=== PATIENT | female | born 1955 | race Caucasian/White ===

== ENCOUNTER 2017-04-08 20:01 | Emergency (ER) | payer OTHER ==
[2017-04-08 20:06] VITALS: PULSE 92; TEMP 99.4; BMI 37.8
--- NOTE | 2017-04-08 21:52 | PDOC ---
Attending Attestation - Resident Resident Name: José Miguel Camarillo - ED Attending Attestation I have performed the following: I have examined & evaluated the patient, The case was reviewed & discussed with the resident, I agree w/resident's findings & plan, Exceptions are as noted - HPI HPI: 04/09/17 03:44 Pt is a 62F w/ PMH Asthma (not on meds, no intubations/admissions), HTN (not compliant with meds), who presents to ED with 2 days of cough, right ear, throat , chest pain, and chills x 2 days. Chest pain is substernal but occurs only when he coughs. Cough is nonproductive and worse when she goes out in the cold air. Pt tried taking robitussin with no improvement. +sick contacts. Denies CP outside of coughing, denies SOB, focal weakness or numbness, headache, abd pain , N/V/D. - Physicial Exam PE: 04/09/17 03:50 GENERAL: Awake, alert, and fully oriented, in no acute distress HEAD: No signs of trauma EYES: PERRLA, EOMI, sclera anicteric, conjunctiva clear ENT: Auricles normal inspection, hearing grossly normal, nares patent, oropharynx clear without exudates. Moist mucosa NECK: Normal ROM, supple, no lymphadenopathy, JVD, or masses LUNGS: Breath sounds equal, clear to auscultation bilaterally. No wheezes, and no crackles HEART: Regular rate and rhythm, normal S1 and S2, no murmurs, rubs or gallops ABDOMEN: Soft, nontender, normoactive bowel sounds. No guarding, no rebound. No masses EXTREMITIES: Normal range of motion, no edema. No clubbing or cyanosis. No cords, erythema, or tenderness NEUROLOGICAL: Normal speech, cranial nerves intact, negative pronator drift, 5/ 5 strength in all 4 extremities, normal sensation to light touch in all 4 extremities, normal cerebellar exam, normal gait, normal reflexes and tone SKIN: Warm, Dry, normal turgor, no rashes or lesions noted. - Medical Decision Making 04/09/17 00:45 62-year-old female history of bronchitis presents with cough, congestion and chest pain when she coughs. Vitals remarkable for a blood pressure of 200/100 likely secondary to blood pressure medication noncompliance. Exam within normal limits with clear lungs and no crackles concerning for infiltrate. Likely bronchitis, will give home blood pressure medications and obtain an x-ray. Will also check labs including a troponin. 04/09/17 02:11 Labs wnl. Pt feels better after nebulizer treatment. Rpt BP 180/90. Pt pending CXR to r/o infiltrates.
--- NOTE | 2017-04-08 21:52 | PDOC ---
History of Present Illness - General Chief Complaint: Chest Pain Stated Complaint: CHEST PAIN Time Seen by Provider: 04/08/17 21:34 - History of Present Illness Initial Comments: 04/08/17 21:51 Pt is a 62F w/ PMH mild Asthma (exacerbated by cold), HTN (pt has not taken meds for 2 days), who presents to ED with 2 days of cough, right ear, throat, chest pain, and chills. Symptoms began 2 days ago and have progressed. Chest pain is substernal associated with her cough. Cough is nonproductive and worse when she goes out in the cold air. Pt tried taking Robitussin. Did not measure temperature at home. Pt's son had a cold recently. Pt did not get a flu shot this year. Past History - Past Medical History Allergies/Adverse Reactions: Allergies Allergy/AdvReac Type Severity Reaction Status Date / Time No Known Allergies Allergy Verified 04/08/17 20:02 Home Medications: Ambulatory Orders Nebivolol HCl [Bystolic] 5 mg PO DAILY 08/20/13 Valsartan/Hydrochlorothiazide [Diovan Hct 320-12.5 mg Tab] 1 tab PO DAILY Azithromycin [Zithromax 250mg Tablets -] 250 mg PO DAILY 4 Days #4 tablet Asthma: No CVA: No COPD: No Disorders: Yes (NEPHROLITHIASIS) HTN: Yes - Suicide/Smoking/Psychosocial Hx Smoking History: Never smoked Have you smoked in the past 12 months: No If you are a former smoker, when did you quit?: years ago Information on smoking cessation initiated: No Hx Alcohol Use: No Drug/Substance Use Hx: No Review of Systems - Review of Systems Able to Perform ROS?: Yes Is the patient limited Belarusian proficient: No Constitutional: Yes: Symptoms Reported, Chills. No: Night Sweats HEENTM: Yes: Symptoms Reported, Ear Pain. No: Blurred Vision, Ear Discharge, Nose Congestion, Tinnitus, Hearing Loss Respiratory: Yes: Symptoms reported, Cough. No: Stridor, Wheezing, Productive cough Cardiac (ROS): Yes: Symptoms Reported, Chest Pain, Chest Tightness. No: Irregular Heart Rate ABD/GI: Yes: Symptoms Reported. No: Abdominal Distended, Abd. Pain w/ defecation, Constipated, Diarrhea, Nausea, Poor Appetite, Poor Fluid Intake, Vomiting, Indigestion, Abdominal cramping : Yes: Symptoms Reported. No: Burning, Dysuria, Discharge, Frequency, Flank Pain, Hematuria, Pain, Urgency Musculoskeletal: Yes: Symptoms Reported. No: Muscle Pain Integumentary: Yes: Symptoms Reported. No: Bruising, Lesions Neurological: Yes: Headache *Physical Exam - Vital Signs Last Vital Signs Temp Pulse Resp BP Pulse Ox 99.4 F 92 H 20 200/100 100 04/08/17 20:03 04/08/17 20:03 04/08/17 20:03 04/08/17 20:03 04/08/17 20:03 - Physical Exam General Appearance: Yes: Nourished, Appropriately Dressed. No: Apparent Distress HEENT: positive: EOMI, PHYLLIS, Tonsillar Erythema, TM Erythema (R ear pain with manipulation of tragus). negative: Pharynx Normal, Pale Conjunctivae, Photophobia, Muffled/Hoarse voice, Tonsillar Exudate, Nasal Congestion, Rhinorrhea, Sinus Tenderness, TM Bulging, TM Dull Neck: positive: Trachea midline, Supple. negative: Lymphadenopathy (R), Lymphadenopathy (L), Tender lateral, Tender midline Respiratory/Chest: positive: Normal Breath Sounds. negative: Chest Tender, Respiratory Distress, Wheezing Cardiovascular: positive: Regular Rhythm, Regular Rate, S1, S2. negative: Edema , JVD, Murmur Vascular Pulses: Dorsalis-Pedis (R): 2+ (PT), Doralis-Pedis (L): 2+ (PT) Gastrointestinal/Abdominal: positive: Normal Bowel Sounds, Flat, Soft. negative : Tender, Organomegaly, Pulsatile Mass, Guarding, Tenderness Lymphatic: negative: Adenopathy, Tenderness Extremity: positive: Normal Inspection, Normal Range of Motion. negative: Coldness, Cyanosis, Swelling, Calf Tenderness Neurologic: positive: Fully Oriented, Alert, Normal Mood/Affect, Normal Response , Motor Strength 5/5 ED Treatment Course - LABORATORY CBC & Chemistry Diagram: 04/08/17 22:35 04/08/17 22:35 Medical Decision Making - Medical Decision Making 04/08/17 22:09 Pt is a 62F with PMH HTN, Asthma who presents to ED with symptoms of URI. Pt has 2d cough, chest pain, sore throat, right ear pain, and chills. Pt has tender red right ear canal, pharyngeal erythema, no wheezing. Pt has hypertensive urgency with BP 200/100 . She has not taken HTN meds for 2 days. -resume home BP meds -CBC -CMP -Mg -Tn -CXR 04/09/17 00:45 BP 188/112 will continue to monitor 04/09/17 01:52 BP 183/95 Pt stable *DC/Admit/Observation/Transfer Diagnosis at time of Disposition: Pneumonia Qualifiers: Pneumonia type: due to unspecified organism Laterality: unspecified laterality Lung location: unspecified part of lung Qualified Code(s): J18.9 - Pneumonia, unspecified organism - Discharge Dispostion Disposition: HOME Admit: No - Prescriptions Prescriptions: Azithromycin [Zithromax 250mg Tablets -] 250 mg PO DAILY 4 Days #4 tablet - Referrals Referrals: Arun Patel MD [Primary Care Provider] - - Patient Instructions Printed Discharge Instructions: Pneumonia-Adult Additional Instructions: Take your antibiotics as prescribed. Your blood pressure was elevated in the emergency department, follow up with your primary doctor within 1-2 days for a re-check. Return to the emergency department if you have any new, worsening, or concerning symptoms. - Post Discharge Activity
[2017-04-08] MEDS ORDERED: NEBIVOLOL 5 MG TABLET (FP) PO ONE (21:54)
[2017-04-08] MEDS ORDERED: VALSARTAN 160 MG TABLET (UD) PO ONE (21:55)
[2017-04-08] MEDS ORDERED: HYDROCHLOROTHIAZIDE 12.5 MG CAPSULE (FP) PO ONE (21:56)
[2017-04-08] MEDS ORDERED: VALSARTAN 80 MG TABLET (UD) ONE (22:13)
[2017-04-08] MEDS ORDERED: HYDROCHLOROTHIAZIDE 25 MG TABLET (FP) ONE (22:13)
[2017-04-08 22:46] LABS: BASO % 0.2 % (0-2.0); EOS # 0.2 # (0-4.5); EOS % 4.2 % (0-4.5); LYMPH # 0.6 (8-40); MCH 31.8 pg (25.7-33.7); MCHC 33.4 g/dl (32.0-36.0); MEAN CELL VOLUME 95.1 fl (80-96); MEAN PLT VOLUME 8.3 fl (7.5-11.1); MONO # 0.5 # (3.8-10.2); NEUT # 3.9 # (42.8-82.8); NEUT % 75.2 % (42.8-82.8); PLATELET COUNT 200 K/MM3 (134-434); RDW 12.8 % (11.6-15.6); WHITE BLOOD COUNT 5.2 K/mm3 (4.0-10.0)
[2017-04-08 23:29] LABS: ALBUMIN 3.7 g/dl (3.4-5.0); ALK PHOS 82 U/L (45-117); ANION GAP 9 (8-16); BILIRUBIN,TOTAL 0.4 mg/dL (0.2-1.0); CALCIUM 9.1 mg/dL (8.5-10.1); CO2 27 mmol/L (21-32); CREATININE 0.8 mg/dL (0.55-1.02); GLUCOSE,RANDOM 96 mg/dL (74-106); MAGNESIUM 1.9 mg/dL (1.8-2.4); SGOT/AST 14 U/L (15-37); SGPT/ALT 23 U/L (12-78); TOT PROT 7.8 g/dl (6.4-8.2)
[2017-04-09] MEDS ORDERED: IPRATROPIUM BR 0.02% 0.5 MG/2.5 ML VIAL.NEB. NEB ONE (00:43)
[2017-04-09] MEDS ORDERED: AZITHROMYCIN 500 MG TABLET PO ONE (02:28)
[2017-04-09] MEDS ORDERED: AZITHROMYCIN 500 MG TABLET ONE (03:00)
[2017-04-09 03:05] VITALS: BP 172/85
--- NOTE | 2017-04-09 13:10 | EKG ---
Test Reason : Blood Pressure : / mmHG Vent. Rate : 092 BPM Atrial Rate : 092 BPM P-R Int : 126 ms QRS Dur : 068 ms QT Int : 364 ms P-R-T Axes : 074 055 050 degrees QTc Int : 450 ms POOR DATA QUALITY, INTERPRETATION MAY BE ADVERSELY AFFECTED NORMAL SINUS RHYTHM POSSIBLE LEFT ATRIAL ENLARGEMENT SEPTAL INFARCT , AGE UNDETERMINED ABNORMAL ECG WHEN COMPARED WITH ECG OF 04-JAN-2017 10:36, SEPTAL INFARCT IS NOW PRESENT Confirmed by MD Evaristo, Fautso ([id number]) on 04/09/2017 1:10:24 PM Referred By: Confirmed By:Fausto Loera MD
== END 2017-04-09 03:05 | disposition home or self-care (01) ==
LOC: JER 20:01
PROC: 3E0F7GC Introduction of Other Therapeutic Substance into Respiratory Tract, Via Natural or Artificial Opening (ICD-10-PCS; principal; 2017-04-08)
DX: J18.9 Pneumonia, unspecified organism (principal); I10 Essential (primary) hypertension; J45.909 Unspecified asthma, uncomplicated
CPT/HCPCS: 36415; 71010-TC; 80053; 83735; 84484; 85025; 93005; 93010; 99282-25

== ENCOUNTER 2018-08-01 21:00 | Emergency (ER) | payer OTHER ==
--- NOTE | 2018-08-01 21:08 | PDOC ---
Rapid Medical Evaluation Time Seen by Provider: 08/01/18 21:06 Medical Evaluation: Allergies Allergy/AdvReac Type Severity Reaction Status Date / Time No Known Allergies Allergy Verified 04/08/17 20:02 08/01/18 21:06 I performed a brief in-person evaluation of this patient. Chief complaint: Low back pain x 2 days, no trauma or heavy lifting, no dysuria. Pertinent physical exam findings: Ambulatory. No LE weakness. Normal strength and sensation. I have ordered the following: None Patient will proceed to the ED for further evaluation. Discharge Disposition - Diagnosis Low back pain - Referrals - Patient Instructions - Post Discharge Activity
[2018-08-01 21:11] VITALS: BP 140/78; PULSE 89; TEMP 98.4; BMI 38.7
[2018-08-01] MEDS ORDERED: KETOROLAC TROMETHAMINE 60 MG/2 ML VIAL IM ONE (21:29)
[2018-08-01] MEDS ORDERED: KETOROLAC TROMETHAMINE 60 MG/2 ML VIAL ONE (21:31)
--- NOTE | 2018-08-01 21:39 | PDOC ---
History of Present Illness - General Chief Complaint: Back Pain Stated Complaint: LOWER BACK PAIN Time Seen by Provider: 08/01/18 21:06 History Source: Patient Exam Limitations: Clinical Condition - History of Present Illness Initial Comments: 08/01/18 21:54 Patient with no significant past medical history present with complaint of 2 day history of bilateral lower back pain which is worse with movement. Patient reports she has been doing lots of housecleaning in the last 3 days area patient denies any urinary symptoms of dysuria, burning with urination, urinary frequency, urgency or hematuria. Denies numbness or tingling sensation. Denies fever, chills, nausea or vomiting. Denies any other symptoms Timing/Duration: other (2 days) Past History - Past Medical History Allergies/Adverse Reactions: Allergies Allergy/AdvReac Type Severity Reaction Status Date / Time No Known Allergies Allergy Verified 08/01/18 22:18 Home Medications: Ambulatory Orders Nebivolol HCl [Bystolic] 5 mg PO DAILY 08/20/13 Valsartan/Hydrochlorothiazide [Diovan Hct 320-12.5 mg Tab] 1 tab PO DAILY Methocarbamol [Robaxin -] 500 mg PO BID PRN #14 tablet 08/01/18 Naproxen 500 mg PO BID PRN #20 tablet 08/01/18 Asthma: No CVA: No COPD: No Disorders: Yes (NEPHROLITHIASIS) HTN: Yes - Suicide/Smoking/Psychosocial Hx Smoking History: Unknown if ever smoked Have you smoked in the past 12 months: No If you are a former smoker, when did you quit?: years ago Hx Alcohol Use: No Drug/Substance Use Hx: No Review of Systems - Review of Systems Able to Perform ROS?: Yes Is the patient limited Persian proficient: No Constitutional: No: Weakness HEENTM: No: Symptoms Reported Respiratory: No: Symptoms reported Cardiac (ROS): No: Symptoms Reported ABD/GI: No: Symptoms Reported : No: Burning, Dysuria, Discharge, Frequency, Hematuria, Urgency Musculoskeletal: Yes: Symptoms Reported, Back Pain (b/l lower back), Muscle Pain (b/l lower back) Neurological: No: Headache, Numbness, Paresthesia, Tingling, Dizziness All Other Systems: Reviewed and Negative *Physical Exam - Vital Signs Last Vital Signs Temp Pulse Resp BP Pulse Ox 98.4 F 89 20 140/78 97 04/19/19 21:04 08/01/18 21:04 08/01/18 21:04 08/01/18 21:04 08/01/18 21:04 - Physical Exam Comments: 08/01/18 21:38 GENERAL: Well developed, well nourished. Awake and alert in mild acute distress. CARDIOVASCULAR: Regular rate and rhythm. No murmurs, rubs, or gallops. PULMONARY: No evidence of respiratory distress. Lungs clear to auscultation bilaterally. No wheezing, rales or rhonchi. ABDOMINAL: Soft. Non-tender. Non-distended. No rebound or guarding. No organomegaly. Normoactive bowel sounds MUSCULOSKELETAL : moderate tenderness over posterior paravertebral muscle of lumber spine of L2-S1 on bilateral sides which is worse with external rotation of hip. no CVAT. No bony deformities SKIN: Warm and dry. Normal capillary refill. No rashes. No jaundice. NEUROLOGICAL: Alert, awake, appropriate. No motor deficits in the lower extremities. Gait is normal without ataxia. PSYCHIATRIC: Cooperative. Good eye contact. Appropriate mood and affect. 08/01/18 21:58 General Appearance: Yes: Nourished, Appropriately Dressed, Mild Distress ED Treatment Course - RADIOLOGY Radiology Studies Ordered: Category Date Time Status SPINE-LUMBAR SACRAL [RAD] Stat Radiology 08/01/18 21:29 Ordered - Medications Given in the ED: ED Medications Discontinued Medications Generic Name Dose Route Start Last Admin Trade Name Freq PRN Reason Stop Dose Admin Ketorolac Tromethamine 60 mg 08/01/18 21:29 08/01/18 21:31 Toradol Injection - IM 08/01/18 21:30 60 mg ONCE ONE Administration Medical Decision Making - Medical Decision Making 08/01/18 21:56 Patient with no significant past medical history present with complaint of 2 day history of bilateral lower back pain which is worse with movement. Patient reports she has been doing lots of housecleaning in the last 3 days area patient denies any urinary symptoms of dysuria, burning with urination, urinary frequency, urgency or hematuria. Denies numbness or tingling sensation. Denies fever, chills, nausea or vomiting. Denies any other symptoms Exam significant for mild tenderness to bilateral paravertebral muscle of the lower lumbar spine of L2-S1 with mild midline tenderness which is worse with external rotation of the hip. Negative CVA tenderness. Symptoms likely muscle strain versus herniated disc versus less likely pyelonephritis. Pyelonephritis very unlikely given nose urinary symptoms and negative CVA tenderness. Toradol 60 mg IM given for pain. X-ray of lumbosacral ordered to rule out acute pathology. Patient be discharged home on NSAIDs and muscle relaxer if negative x -ray 08/01/18 22:32 x-rays of lumbosacral shows straightening of lumber spine c/w spasm. Flexeril 10mg PO given for spasm. Patient stable for discharge on naproxen and robaxin prn for pain with ortho follow-up *DC/Admit/Observation/Transfer Diagnosis at time of Disposition: Low back pain Qualifiers: Chronicity: acute Back pain laterality: bilateral Sciatica presence: without sciatica Qualified Code(s): M54.5 - Low back pain - Discharge Dispostion Disposition: HOME Condition at time of disposition: Stable Decision to Admit order: No - Prescriptions Prescriptions: Methocarbamol [Robaxin -] 500 mg PO BID PRN #14 tablet PRN Reason: Back Pain Naproxen 500 mg PO BID PRN #20 tablet PRN Reason: Back Pain - Referrals Referrals: Jesús Chua MD [Staff Physician] - - Patient Instructions Printed Discharge Instructions: Low Back Pain, Exercise May Reduce Risk of Low Back Pain Additional Instructions: Your x-ray shows no acute fracture or dislocation. x-rays shows spasm of spine. Your symptoms is likely from muscle spasm. Take prescribed medications as needed for pain. Apply hot compress to lower back 2-3 times per day as needed for pain. Follow-up with referred orthopedics manufacture specialist if no improvement in 4 days - Post Discharge Activity
[2018-08-01] MEDS ORDERED: CYCLOBENZAPRINE HCL 10 MG TABLET (FP) PO ONE (22:25)
[2018-08-01] MEDS ORDERED: CYCLOBENZAPRINE HCL 10 MG TABLET (FP) ONE (22:26)
== END 2018-08-01 22:52 | disposition home or self-care (01) ==
LOC: JER 21:00 → JERFT 21:00
PROC: 3E0233Z Introduction of Anti-inflammatory into Muscle, Percutaneous Approach (ICD-10-PCS; principal; 2018-08-01)
DX: M54.5 Low back pain (principal)
CPT/HCPCS: 72100-TC-FY; 96372; 99282-25

== ENCOUNTER 2018-12-20 15:43 | Emergency (ER) | payer OTHER ==
[2018-12-20 15:53] VITALS: BP 144/72; PULSE 82; TEMP 98.5; BMI 37.8
--- NOTE | 2018-12-20 18:03 | PDOC ---
History of Present Illness - General Chief Complaint: Pain Stated Complaint: LT SIDE LEG/ ANKLE PAIN/ RT ARM ELBOW PAIN Time Seen by Provider: 12/20/18 16:39 History Source: Patient Exam Limitations: No Limitations Past History - Past Medical History Allergies/Adverse Reactions: Allergies Allergy/AdvReac Type Severity Reaction Status Date / Time No Known Allergies Allergy Verified 12/20/18 15:52 Home Medications: Ambulatory Orders Nebivolol HCl [Bystolic] 5 mg PO DAILY 08/20/13 Valsartan/Hydrochlorothiazide [Diovan Hct 320-12.5 mg Tab] 1 tab PO DAILY Methocarbamol [Robaxin -] 500 mg PO BID PRN #14 tablet 08/01/18 Naproxen 500 mg PO BID PRN #20 tablet 08/01/18 Asthma: No CVA: No COPD: No Disorders: Yes (NEPHROLITHIASIS) HTN: Yes Other medical history: arthritis, psoriasis - Immunization History Immunization Up to Date: Yes - Suicide/Smoking/Psychosocial Hx Smoking History: Never smoked Have you smoked in the past 12 months: No If you are a former smoker, when did you quit?: years ago Hx Alcohol Use: No Drug/Substance Use Hx: No *Physical Exam - Vital Signs Last Vital Signs Temp Pulse Resp BP Pulse Ox 98.5 F 82 18 144/72 98 12/20/18 15:49 12/20/18 15:49 12/20/18 15:49 12/20/18 15:49 12/20/18 15:49 - Physical Exam General Appearance: No: Apparent Distress Musculoskeletal: positive: Other (+swelling along L posterior heel, no erythema , no calf tenderness, no pedal edema, FROM of L ankle/foot; R elbow FROM, no swelling, deformity, erythema, warmth) Extremity: negative: Pedal Edema, Swelling, Calf Tenderness Integumentary: positive: Normal Color. negative: Rash, Ecchymosis, Bruising Neurologic: positive: Alert, Normal Mood/Affect ED Treatment Course - RADIOLOGY Radiology Studies Ordered: Category Date Time Status ANKLE-LEFT [RAD] Stat Radiology 12/20/18 16:51 Taken ELBOW-RIGHT [RAD] Stat Radiology 12/20/18 16:51 Taken Medical Decision Making - Medical Decision Making 63 y/o F hx of asthma, HTN, psoriasis, RA presents with R elbow pain and pain/ swelling along back of L heel for the past "few days." Has been taking Motrin without much relief of symptoms. Denies trauma, numbness/tingling, redness, weakness of extremities. R elbow xray unremarkable L ankle - heel spur noted, no other anomaly noted Likely with tendonitis along L ankle L ankle shadia-wrapped Proper shoes discussed stable for dc 12/20/18 18:01 *DC/Admit/Observation/Transfer Diagnosis at time of Disposition: Tendonitis of ankle, left - Discharge Dispostion Disposition: HOME Condition at time of disposition: Stable Decision to Admit order: No - Referrals Referrals: Arun Patel MD [Primary Care Provider] - 2 Days - Patient Instructions Printed Discharge Instructions: DI for Achilles Tendinopathy Additional Instructions: Thank you for choosing [facility]. It was a pleasure taking care of you. You may take Motrin 600 mg every 6 hours by mouth as needed for mild to moderate pain. Take Motrin with food. Please wear shoes that provide proper cushion and comfort. Do not wear tight shoes Recommend physical therapy Follow-up with your doctor Return to the Emergency Department if your symptoms worsen or persist or have other concerning symptoms. - Post Discharge Activity Forms/Work/School Notes: Back to Work
== END 2018-12-20 18:13 | disposition home or self-care (01) ==
LOC: JERFT 15:43
DX: M76.62 Achilles tendinitis, left leg (principal)
CPT/HCPCS: 73070-TC-RT-FY; 73610-TC-LT-FY; 99282-25

== ENCOUNTER 2021-10-23 06:20 | Day surgery (SDC) | payer OTHER ==
[2021-10-18 12:52] VITALS: BMI 36.8
[2021-10-23] MEDS ORDERED: EPI-SHUGARCAINE (EPINEPHRINE 0.025% & LIDOCAINE-PF 0.75%) 4ML ONE (07:13)
[2021-10-23] MEDS ORDERED: POVIDONE-IODINE 5% OPHTHALMIC PREP 30 ML SOLUTION ONE (07:13)
[2021-10-23] MEDS ORDERED: BACITRACIN/POLYMYXIN OPH OINT 3.5 GM TUBE ONE (07:13)
[2021-10-23] MEDS ORDERED: BETAXOLOL HCL 0.25% OPHTHALMIC 10 ML DROPSBTL ONE (07:13)
[2021-10-23] MEDS ORDERED: TETRACAINE 0.5% OPHTH SOLN 2 ML BOTTLE ONE (07:13)
[2021-10-23] MEDS ORDERED: BSS (NA/CA/MG/K) BALANCED SALT SOLUTION OPHTH SOLN 15 ML BOTTLE ONE (07:13)
[2021-10-23] MEDS ORDERED: EPINEPHrine/PF 1 MG/1 ML (1:1,000) AMPULE ONE (07:13)
[2021-10-23] MEDS ORDERED: PHENYLEPHRINE/KETOROLAC 4 ML VIAL IO ONE (07:14)
[2021-10-23] MEDS ORDERED: NEO/POLYMYX B SULF/DEXAMETH OPHTHALMIC 5ML BOTTLE ONE (07:14)
[2021-10-23] MEDS ORDERED: ACETYLCHOLINE 1:100 INTRA-OCUL 20 MG/2 ML KIT ONE (07:14)
[2021-10-23] MEDS ORDERED: SUCCINYLCHOLINE CHLORIDE 200 MG/10 ML SYRINGE ONE (07:23)
[2021-10-23] MEDS ORDERED: PROPOFOL 20 ML ONE ×2 (07:23)
[2021-10-23] MEDS ORDERED: MIDAZOLAM HCL 2 MG/2 ML SINGLE DOSE VIAL ONE (07:23)
[2021-10-23] MEDS ORDERED: LIDOCAINE HCL 1%, 10 MG/ML (20ML VIAL) ONE (07:38)
[2021-10-23] MEDS ORDERED: LIDOCAINE HCL 2% (20ML MULTI-DOSE VIAL) ONE (07:38)
[2021-10-23] MEDS ORDERED: BUPIVACAINE HCL 50 ML ONE (07:38)
[2021-10-23] MEDS ORDERED: BUPIVACAINE HCL/PF 0.25% (2.5MG/ML) 10 ML VIAL ONE (07:38)
[2021-10-23] MEDS ORDERED: ONDANSETRON 4 MG/2 ML VIAL ONE (07:45)
[2021-10-23] MEDS ORDERED: KETOROLAC TROMETHAMINE 30 MG/1 ML VIAL ONE (07:45)
[2021-10-23] MEDS ORDERED: DEXAMETHASONE SOD PHOSPHATE 4 MG/1 ML VIAL ONE (07:45)
[2021-10-23] MEDS ORDERED: ACETAMINOPHEN 325 MG TABLET (FP) PO PRN (08:20)
[2021-10-23] MEDS ORDERED: ONDANSETRON 4 MG/2 ML VIAL IVPUSH PRN (08:20)
[2021-10-23] MEDS ORDERED: oxyCODONE HCL 5 MG TABLET PO PRN ×2 (08:20)
[2021-10-23 12:30] VITALS: TEMP 97.8
[2021-10-23 12:36] VITALS: BP 120/58; PULSE 60
== END 2021-10-23 09:15 | disposition home or self-care (01) ==
LOC: FASU 06:20
PROVIDERS: ATTEND Orthopaedic Surgery Sports Medicine
PROC: 0LNN3ZZ Release Right Lower Leg Tendon, Percutaneous Approach (ICD-10-PCS; principal; 2021-10-23 08:01)
DX: M76.61 Achilles tendinitis, right leg (principal)
CPT/HCPCS: J1097

== ENCOUNTER 2024-01-16 11:49 | Emergency (ER) | payer OTHER ==
[2024-01-16 12:18] VITALS: BP 160/86; PULSE 59; RESP 18; TEMP 98; BMI 35.9
[2024-01-16] MEDS ORDERED: ALBUTEROL SO4 0.083% IH SOL 2.5 MG/3 ML VIAL.NEB. NEB ONE (13:54)
[2024-01-16] MEDS ORDERED: ACETAMINOPHEN INJECTION 100 ML ONE (13:54)
[2024-01-16] MEDS: ACETAMINOPHEN 1000 MG/100 ML BAG IVPB ONE (14:02)
[2024-01-16] MEDS: ALBUTEROL SO4 0.083% IH SOL 2.5 MG/3 ML VIAL.NEB. NEB ONE (14:02)
[2024-01-16 14:12] LABS: BASO % 0.5 % (0-2.0); EOS % 5.6 % (0-4.5); HEMOGLOBIN 13.1 GM/dL (10.7-15.3); LYMPH % 31.6 % (8-40); MCH 32.9 pg (25.7-33.7); MCHC 33.6 g/dl (32.0-36.0); MEAN CELL VOLUME 97.8 fl (80-96); MONO % 8.3 % (3.8-10.2); PLATELET COUNT 221 10^3/uL (134-434); RBC 3.99 M/mm3 (3.60-5.2); RDW 12.7 % (11.6-15.6); WHITE BLOOD COUNT 6.2 K/mm3 (4.0-10.0)
[2024-01-16 14:31] LABS: POTASSIUM 3.8 mmol/L (3.5-5.1)
[2024-01-16 14:33] LABS: CALCIUM 10.1 mg/dL (8.5-10.1)
[2024-01-16 14:34] LABS: ALBUMIN 3.9 g/dl (3.4-5.0); BLOOD UREA NITROGEN 24.5 mg/dL (7-18)
[2024-01-16 14:37] LABS: BILIRUBIN,TOTAL 0.9 mg/dL (0.2-1); CREATININE 0.9 mg/dL (0.55-1.3)
[2024-01-16 14:39] LABS: TOT PROT 7.4 g/dl (6.4-8.2)
[2024-01-16] MEDS ORDERED: DEXAMETHASONE SOD PHOSPHATE 4 MG/1 ML VIAL ONE (15:12)
[2024-01-16] MEDS ORDERED: DEXAMETHASONE SOD PHOSPHATE 10 MG/1 ML VIAL ONE (15:12)
[2024-01-16] MEDS: DEXAMETHASONE SOD PHOSPHATE 20 MG/5 ML VIAL IVPB ONE (15:32)
== END 2024-01-16 15:50 | disposition home or self-care (01) ==
LOC: JER 11:49
PROC: 3E033NZ Introduction of Analgesics, Hypnotics, Sedatives into Peripheral Vein, Percutaneous Approach (ICD-10-PCS; principal; 2024-01-16)
PROC: 3E033GC Introduction of Other Therapeutic Substance into Peripheral Vein, Percutaneous Approach (ICD-10-PCS; 2024-01-16)
PROC: 3E0F7GC Introduction of Other Therapeutic Substance into Respiratory Tract, Via Natural or Artificial Opening (ICD-10-PCS; 2024-01-16)
DX: J40 Bronchitis, not specified as acute or chronic (principal); R07.2 Precordial pain; R09.81 Nasal congestion; J02.9 Acute pharyngitis, unspecified; R05.9 Cough, unspecified; R68.83 Chills (without fever); Z20.822 Contact with and (suspected) exposure to COVID-19
CPT/HCPCS: 0241U-QW; 36415; 71045-TC-FY; 80053; 83880; 84484; 85025; 87651; 93005; 93010; 99285-25; J0131